=== PATIENT | female | born 1975 | race Asian ===

== ENCOUNTER 2019-09-20 10:44 | Outpatient (CLI) | payer BC ==
--- NOTE | 2019-09-20 11:43 | MMO ---
Bilateral MAMMO Bilat Screen [facility]DI+JAUN. CLINICAL HISTORY: Patient is 43 years old and is seen for screening. The patient has no family history of breast cancer. The patient has no personal history of cancer. VIEWS: The views performed were: bilateral craniocaudal with tomosynthesis and bilateral mediolateral oblique with tomosynthesis. This study has been interpreted with the assistance of computer-aided detection. MAMMOGRAM FINDINGS: The breasts are heterogeneously dense, which could obscure a lesion on mammography. There is a lobular mass measuring 12 millimeters seen in the left breast. Suspicious for atypical intramammary lymph node. In the right breast, there are no suspicious masses, calcifications or areas of architectural distortion. IMPRESSION: MASS IN THE LEFT BREAST REQUIRES ADDITIONAL EVALUATION. AN ULTRASOUND EXAM IS RECOMMENDED. RECOMMEND DIAGNOSTIC MAMMOGRAM. THE RESULTS OF THIS EXAM WERE SENT TO THE PATIENT. ACR BI-RADS Category 0 - Incomplete: Need additional imaging evaluation. [facility] will notify the patient of the need for additional imaging services. MAMMOGRAPHY NOTE: 1. A negative mammogram report should not delay a biopsy if a dominant of clinically suspicious mass is present. 2. Approximately 10% to 15% of breast cancers are not detected by mammography. 3. Adenosis and dense breasts may obscure an underlying neoplasm. Reported by: RACIEL CONTRERAS MD Electonically Signed: [id number]
== END 2019-09-20 10:45 | disposition home or self-care (01) ==
LOC: BICMAMMO 10:44
PROVIDERS: ATTEND Obstetrics & Gynecology
DX: Z12.31 Encounter for screening mammogram for malignant neoplasm of breast (principal); N63.20 Unspecified lump in the left breast, unspecified quadrant
CPT/HCPCS: 77063; 77067

== ENCOUNTER 2019-09-25 09:56 | Outpatient (CLI) | payer BC ==
--- NOTE | 2019-09-25 10:53 | MMO ---
Left Breast MAMMO Unilat Diag DDI LT+JAUN. CLINICAL HISTORY: Patient is 43 years old and is seen for diagnostic exam. The patient has no family history of breast cancer. The patient has no personal history of cancer. VIEWS: The views performed were: right craniocaudal spot compression with tomosynthesis; right mediolateral oblique spot compression with tomosynthesis; and right mediolateral with tomosynthesis. FILMS COMPARED: The present examination has been compared to prior imaging studies performed at [facility] on 09/20/2019 and 09/25/2019. This study has been interpreted with the assistance of computer-aided detection. MAMMOGRAM FINDINGS: The breast is heterogeneously dense, which could obscure a lesion on mammography. There is an equal density mass measuring 12 millimeters with circumscribed margins seen in the left breast at 8 o'clock. IMPRESSION: MASS IN THE LEFT BREAST IS SUSPICIOUS. AN ULTRASOUND-GUIDED BREAST BIOPSY IS RECOMMENDED. RESULTS AND RECOMMENDATIONS DISCUSSED WITH THE PATIENT AND QUESTIONS ANSWERED. THE RESULTS OF THIS EXAM WERE SENT TO THE PATIENT. ACR BI-RADS Category 4 - Suspicious abnormality - biopsy should be considered MAMMOGRAPHY NOTE: 1. A negative mammogram report should not delay a biopsy if a dominant of clinically suspicious mass is present. 2. Approximately 10% to 15% of breast cancers are not detected by mammography. 3. Adenosis and dense breasts may obscure an underlying neoplasm. Reported by: ESTEFANIA LOBATO MD Electonically Signed: [id number]
--- NOTE | 2019-09-25 11:46 | ULT ---
LIMITED LEFT BREAST ULTRASOUND: Date: 09/25/2019 PROVIDED CLINICAL HISTORY: Abnormal mammogram. FINDINGS: Limited sonographic interrogation of the left breast was performed in the region of mammographic conc robyn. There is a hypoechoic mass, taller than wide, and demonstrating posterior acoustic shadowing at the 8 o'clock position of the left breast. This measures approximately 1.0 cm in greatest dimension. IMPRESSION: BI-RADS Category 4 - Suspicious abnormality. Ultrasound-guided biopsy is recommended. Results and recommendations are discussed with the patient and questions answered. POS: OFF
== END 2019-09-25 09:57 | disposition home or self-care (01) ==
LOC: BICMAMMO 09:56
PROVIDERS: ATTEND Obstetrics & Gynecology
DX: N63.10 Unspecified lump in the right breast, unspecified quadrant (principal); N63.20 Unspecified lump in the left breast, unspecified quadrant
CPT/HCPCS: G0279

== ENCOUNTER → 2019-10-03 | Day surgery (SDC) | payer BC ==
--- NOTE | 2019-10-03 13:47 | MMO ---
Left Breast MAMMO Unilat Diag DDI LT. CLINICAL HISTORY: Patient is 43 years old and is seen for diagnostic exam. The patient has no family history of breast cancer. The patient has no personal history of cancer. VIEWS: The views performed were: left craniocaudal and left mediolateral. FILMS COMPARED: The present examination has been compared to prior imaging studies performed at [facility] on 09/20/2019 and 09/25/2019. This study has been interpreted with the assistance of computer-aided detection. MAMMOGRAM FINDINGS: The breast is heterogeneously dense, which could obscure a lesion on mammography. There is a new biopsy clip seen in the left breast. IMPRESSION: NEW BIOPSY CLIP IN THE LEFT BREAST IS CONFIRMED UTILIZING POST PROCEDURE MAMMOGRAM. THE RESULTS OF THIS EXAM WERE SENT TO THE PATIENT. MAMMOGRAPHY NOTE: 1. A negative mammogram report should not delay a biopsy if a dominant of clinically suspicious mass is present. 2. Approximately 10% to 15% of breast cancers are not detected by mammography. 3. Adenosis and dense breasts may obscure an underlying neoplasm. Reported by: ESTEFANIA LOBATO MD Electonically Signed: [id number]
--- NOTE | 2019-10-03 15:08 | ULT ---
ULTRASOUND GUIDED LEFT BREAST BIOPSY: HISTORY: Left breast mass. COMPARISON: 09/25/2019. FINDINGS: Successful left breast biopsy with ultrasound guidance. A total of three 12-gauge core biopsy samples were obtained. Successful placement of biopsy clip. TECHNIQUE: Consent obtained to perform a left breast biopsy with ultrasound guidance. Left breast was prepped an d draped in a sterile fashion. 1% lidocaine, buffered with sodium bicarbonate was used for local anesthesia. Under sonographic guidance, a 12-gauge biopsy needle was used to obtain 3 separate core s amples which were placed directly in formalin. Under sonographic guidance, a biopsy clip was placed. Patient tolerated the procedure well. No immediate or postprocedure complications. Postbiopsy mammogram demonstrates the clip to be adjacent to the lesion. IMPRESSION: Successful ultrasound-guided biopsy of a left breast mass. Final pathologic diagnosis is pending. Transcribed Date/Time: 10/03/2019 3:12 PM
== END ==
LOC: BICULT 12:24
PROVIDERS: ATTEND Obstetrics & Gynecology
PROC: 0H95XZX Drainage of Chest Skin, External Approach, Diagnostic (ICD-10-PCS; principal; 2019-10-03)
DX: N63.22 Unspecified lump in the left breast, upper inner quadrant (principal)
CPT/HCPCS: 19083; 88305